=== PATIENT | female | born 1990 | race Two or more races ===

== ENCOUNTER 2023-10-02 11:15 | Emergency (ER) | payer MEDICAID ==
[~2023-10-02] VITALS: Ht 170.2 cm; Wt 54.4 kg
[2023-10-02] MEDS ORDERED: ACETAMINOPHEN ES 500 MG TABLET PO ONE (12:00)
[2023-10-02] MEDS ORDERED: KETOROLAC TROMETHAMINE INJ 30 MG/ML VIAL IV ONE (12:00)
[2023-10-02] MEDS ORDERED: IV NS 0.9% 1,000 ML BAG IV ONE (12:00)
[2023-10-02] MEDS ORDERED: KETOROLAC TROMETHAMINE 15 MG/ML VIAL ONE (12:03)
[2023-10-02] MEDS ORDERED: ACETAMINOPHEN ES 500 MG TABLET ONE (12:04)
[2023-10-02 12:19] LABS: BASOPHILS % (AUTO) 0.4 % (0.0-2.0); EOSINOPHILS % (AUTO) 0.6 % (0.0-6.0); HEMATOCRIT 39 % (33-45); LYMPHOCYTES # (AUTO) 1.2 K/uL (0.8-4.8); LYMPHOCYTES % (AUTO) 30.5 % (20.0-44.0); MEAN CORPUSCULAR HEMOGLOBIN 31 PG (26.0-33.0); MEAN CORPUSCULAR HGB CONC 34 g/dl (31.0-36.0); MEAN CORPUSCULAR VOLUME 94 fL (82-100); MONOCYTES # (AUTO) 0.3 K/uL (0.1-1.30); MONOCYTES % (AUTO) 7.2 % (2.0-12.0); NEUTROPHILS # (AUTO) 2.5 K/uL (1.8-8.9); NEUTROPHILS % (AUTO) 61.3 % (43.0-81.0); PLATELET COUNT (AUTO) 197 K/uL (150-450); RED BLOOD CELL COUNT(AUTO) 4.15 MIL/uL (4.0-5.2); RED CELL DISTRIBUTION WIDTH 13.7 % (11.5-15.0)
[2023-10-02 12:41] LABS: CALCIUM, SERUM 8.9 mg/dL (8.5-10.1); CARBON DIOXIDE 25 mmol/L (21-32); CHLORIDE 105 mmol/L (98-107); CREATININE 0.7 mg/dL (0.6-1.3); GLUCOSE 92 mg/dL (74-106); POTASSIUM 3.9 mmol/L (3.5-5.1); SODIUM SERUM 139 mmol/L (136-145); UREA NITROGEN, BLOOD 12 mg/dL (7-18)
[2023-10-02 14:48] VITALS: BP 113/62; TEMP 98.5; O2SAT 99
== END 2023-10-02 14:48 | disposition home or self-care (01) ==
LOC: ER 11:15
DX: S80.11XA Contusion of right lower leg, initial encounter (principal); R55 Syncope and collapse; M25.511 Pain in right shoulder; Z60.2 Problems related to living alone; W22.8XXA Striking against or struck by other objects, initial encounter; Y93.89 Activity, other specified; Y92.89 Other specified places as the place of occurrence of the external cause; Y99.8 Other external cause status
CPT/HCPCS: 99285; 96374; 93971; 71045; 96361; 93005; 73030; 85025; 80048; 85378; 36415; 84484; J7030; J1885